=== PATIENT | female | born 1995 | race Caucasian/White ===

== ENCOUNTER 2017-11-05 15:58 | Emergency (ER) | payer BC, MEDICAID ==
[2017-11-05 16:30] VITALS: BP 142/75
--- NOTE | 2017-11-05 17:03 | UC ---
Skin Complaint HPI - HPI Summary HPI Summary: Patient is a 22-year-old female with the onset of her rash about 4 days ago. Initially the rest wrist just on her chest . It has since spread to her neck and upper back. It is not pruritic or painful. - History of Current Complaint Chief Complaint: UCRash Time Seen by Provider: 11/05/17 16:42 Stated Complaint: SKIN COMPLAINT Hx Obtained From: Patient Hx Last Menstrual Period: 10/20/17 Onset/Duration: Gradual Onset, Lasting Days Timing: Constant Onset Severity: Mild Current Severity: Moderate Pain Intensity: 0 Pain Scale Used: 0-10 Numeric Location: Other - see hpi Character: Redness, Raised Aggravating Factor(s): Nothing Alleviating Factor(s): Nothing Associated Signs & Symptoms: Positive: Rash - Allergy/Home Medications Allergies/Adverse Reactions: Allergies Allergy/AdvReac Type Severity Reaction Status Date / Time amoxicillin [From Augmentin] AdvReac GI Upset Verified 11/05/17 16:31 clavulanic acid AdvReac GI Upset Verified 11/05/17 16:31 [From Augmentin] Home Medications: Home Medications Ascorbic Acid TAB* [Vitamin C TAB*] 500 mg PO DAILY 11/05/17 [History Confirmed 11/05/17] Carvedilol TAB* [Coreg TAB*] 5 mg PO DAILY 11/05/17 [History Confirmed 11/05/17] Echinacea 380 mg PO DAILY 11/05/17 [History Confirmed 11/05/17] Magnesium [Magnesium Elemental] 30 mg PO DAILY 11/05/17 [History Confirmed 11/05] Multivitamin with Minerals [One Daily Complete] 1 each PO DAILY 11/05/17 [ History Confirmed 11/05/17] Review of Systems Constitutional: Negative Skin: Rash Eyes: Negative ENT: Negative Respiratory: Negative Cardiovascular: Negative Gastrointestinal: Negative Genitourinary: Negative Motor: Negative Neurovascular: Negative Musculoskeletal: Negative Neurological: Negative Psychological: Negative Is Patient Immunocompromised?: No All Other Systems Reviewed And Are Negative: Yes PMH/Surg Hx/FS Hx/Imm Hx Previously Healthy: Yes Endocrine History: Diabetes Cardiovascular History: Other Other Cardiovascular History: tachycardic/benign heart murmur - Surgical History Surgical History: None - Family History Known Family History: Positive: Hypertension - Social History Alcohol Use: Rare Substance Use Type: None Smoking Status (MU): Never Smoked Tobacco - Immunization History Vaccination Up to Date: Yes Physical Exam Triage Information Reviewed: Yes Appearance: Well-Appearing, No Pain Distress, Well-Nourished Vital Signs: Initial Vital Signs Temp 97.6 F 11/05/17 16:18 Pulse 112 11/05/17 16:18 Resp 16 11/05/17 16:18 BP 142/75 11/05/17 16:18 Pulse Ox 100 11/05/17 16:18 Vital Signs Reviewed: Yes Eyes: Positive: Conjunctiva Clear ENT: Positive: Hearing grossly normal. Negative: Nasal congestion, Nasal drainage, Trismus, Muffled voice, Hoarse voice Neck: Positive: Supple, Nontender, No Lymphadenopathy Respiratory: Positive: Lungs clear, Normal breath sounds, No respiratory distress Cardiovascular: Positive: RRR, No Murmur Musculoskeletal: Positive: No Edema Neurological: Positive: Alert Psychological Exam: Normal Skin Exam: Other - minute papule slight reddish base no pustules or vesicles Course/Dx - Diagnoses Provider Diagnoses: rash of uncertain cause. ? folliculitis vs other Discharge - Sign-Out/Discharge Documenting (check all that apply): Patient Departure All imaging exams completed and their final reports reviewed: No Studies - Discharge Plan Condition: Stable Disposition: HOME Prescriptions: Triamcinolone 0.5% CREAM(NF) [Triamcinolone 0.5% CREAM*] 1 applic TOPICAL QID # 60 tube Patient Education Materials: Acute Rash (ED) Referrals: Olivia Lambert PA [Primary Care Provider] - 5 Days (if not better) - Billing Disposition and Condition Condition: STABLE Disposition: Home
== END 2017-11-05 17:03 | disposition home or self-care (01) ==
LOC: UCCORT 15:58
DX: R21 Rash and other nonspecific skin eruption (principal); E11.9 Type 2 diabetes mellitus without complications; Z88.0 Allergy status to penicillin; Z88.1 Allergy status to other antibiotic agents
CPT/HCPCS: 99212; G0463

== ENCOUNTER 2018-03-24 19:09 | Emergency (ER) | payer BC, MEDICAID ==
[2018-03-24 19:39] VITALS: BP 130/85
--- NOTE | 2018-03-24 20:15 | UC ---
Throat Pain/Nasal Asaf HPI - HPI Summary HPI Summary: Pt c/o ST, and dry cough. Pt also concerned about vaginal yeast infection. Pt has DM and uses a pump. Pt also reports that she is having frequent hypoglycemic episodes. - History of Current Complaint Chief Complaint: UCGeneralIllness Stated Complaint: SORE THROAT,COUGH Time Seen by Provider: 03/24/18 19:34 Hx Obtained From: Patient Hx Last Menstrual Period: 02/2018 ?: No Onset/Duration: Sudden Onset, Lasting Days, Still Present Severity: Moderate Pain Intensity: 6 Cough: Nonproductive Associated Signs & Symptoms: Positive: Dysphagia - Epiglottits Risk Factors Epiglottis Risk Factors: Negative - Allergies/Home Medications Allergies/Adverse Reactions: Allergies Allergy/AdvReac Type Severity Reaction Status Date / Time amoxicillin [From Augmentin] AdvReac GI Upset Verified 03/24/18 19:38 clavulanic acid AdvReac GI Upset Verified 03/24/18 19:38 [From Augmentin] ppd serum Allergy See Comment Uncoded 03/24/18 19:38 PMH/Surg Hx/FS Hx/Imm Hx Previously Healthy: Yes Endocrine History: Diabetes - Surgical History Surgical History: None - Family History Known Family History: Positive: Hypertension - Social History Occupation: Employed Full-time Lives: With Family Alcohol Use: Occasionally Substance Use Type: None Smoking Status (MU): Never Smoked Tobacco Have You Smoked in the Last Year: No - Immunization History Vaccination Up to Date: Yes Review of Systems All Other Systems Reviewed And Are Negative: Yes Constitutional: Positive: Fatigue Skin: Positive: Negative Eyes: Positive: Negative ENT: Positive: Sore Throat Respiratory: Positive: Cough Cardiovascular: Positive: Negative Gastrointestinal: Positive: Negative Genitourinary: Positive: Vaginal/Penile Discharge Motor: Positive: Negative Neurovascular: Positive: Negative Musculoskeletal: Positive: Negative Neurological: Positive: Negative Psychological: Positive: Negative Is Patient Immunocompromised?: No Physical Exam Triage Information Reviewed: Yes Appearance: Well-Appearing Vital Signs: Initial Vital Signs Temp 98.3 F 03/24/18 19:29 Pulse 124 03/24/18 19:29 Resp 16 03/24/18 19:29 BP 130/85 03/24/18 19:29 Pulse Ox 99 03/24/18 19:29 Vital Signs Reviewed: Yes Eye Exam: Normal ENT: Positive: Pharyngeal erythema Dental Exam: Normal Neck exam: Normal Respiratory Exam: Normal Cardiovascular Exam: Normal Musculoskeletal Exam: Normal Neurological Exam: Normal Psychological Exam: Normal Skin Exam: Normal Throat Pain/Nasal Course/Dx - Course Course Of Treatment: I discussed with the pt and pt'smother my concern for her discussion of hypoglycemic episode. I recommened that they go directly to the closest ER. Pt verbalized understanding and agreed to plan of care. - Differential Dx/Diagnosis Differential Diagnosis/HQI/PQRI: Pharyngitis, Tonsillitis Provider Diagnosis: Sore throat (viral), Vaginal discharge Discharge - Sign-Out/Discharge Documenting (check all that apply): Patient Departure All imaging exams completed and their final reports reviewed: No Studies - Discharge Plan Condition: Stable Disposition: HOME Prescriptions: Fluconazole 150 MG TAB* [Diflucan 150 MG TAB*] 150 mg PO ONCE #2 tablet Patient Education Materials: Pharyngitis (ED), Vaginitis (ED) Referrals: Olivia Lambert PA [Primary Care Provider] - If Needed Additional Instructions: Please follow up with your PCP and your water supply technician as soon as possible. - Billing Disposition and Condition Condition: STABLE Disposition: Home - Attestation Statements Provider Attestation: I was available for consult. This patient was seen by the LETTY. The patient was not presented to, seen by, or examined by me. EK
== END 2018-03-24 20:24 | disposition home or self-care (01) ==
LOC: UCCORT 19:09
DX: J02.9 Acute pharyngitis, unspecified (principal); N89.8 Other specified noninflammatory disorders of vagina; E11.9 Type 2 diabetes mellitus without complications; Z96.41 Presence of insulin pump (external) (internal); Z88.0 Allergy status to penicillin; Z88.8 Allergy status to other drugs, medicaments and biological substances
CPT/HCPCS: 87651; 99212; G0463

== ENCOUNTER 2019-01-31 13:10 | Emergency (ER) | payer BC, MEDICAID ==
--- OUTSIDE RECORDS SUMMARY | 2019-01-31 13:43 | XMS REPORT | Continuity of Care Document ---
:1995 External Reference #:[id number] Author Name MARCELINA Mcmahan (transmitted by agent of provider Crystal Guadalupe) Address [address] [place] [address] Care Team Providers Name Role Phone Olivia Lambert RPA - Medical Care Team Information Laboratory Mechanic Helper Anil Jordan MD - Endocrinology, Care Team Information Laboratory Mechanic Helper [phone] Diabetes & Metabolism Problems Active Problems Provider Date Type 1 diabetes mellitus uncontrolled MARCELINA Mcmahan Onset: 05/18/2018 Hyperlipidemia MARCELINA Mcmahan Onset: 05/18/2018 Celiac disease MARCELINA Mcmahan Onset: 05/18/2018 Sprain of ankle MARCELINA Mcmahan Onset: 05/18/2018 Note: right side Essential hypertension MARCELINA Mcmahan Onset: 05/18/2018 Social History Type Date Description Comments Sex Unknown ETOH Use Occasionally consumes alcohol Tobacco Use Start: Unknown Patient has never smoked Recreational Drug Use Denies Drug Use Smoking Status Reviewed: 08/31/18 Patient has never smoked Exercise Type/Frequency Does not exercise Allergies, Adverse Reactions, Alerts Active Allergies Reaction Severity Comments Date Augmentin upset stomach,nausea 04/28/2018 Inactive Allergies NKDA 01/01/2013 Medications Active Medications SIG Qnty Indications Ordering Date Provider Atorvastatin Calcium 1 by mouth every 90tabs Brando 01/17/2019 40mg day MD Shahriar Tablets Diltiazem HCL ER Beads 1 cap by mouth Irais Bermeo 01/12/2019 every night PA 180mg Caps ER 24HR Multi Vitamin Daily 2 by mouth every 30tabs Brando 08/31/2018 day MD Shahriar Tablets Vitamin C 1 by mouth every 90caps Brando 08/31/2018 500mg Capsules day MD Shahriar Clobetasol Propionate apply to affected 30gm L30.9 Brando 08/31/2018 area every day MD Shahriar 0.05% Cream prn Enskyce 1 tab by mouth 84tabs Brando 06/02/2018 0.15-30mg-mcg every day MD Shahriar Tablets Novolog Infusion Via basal of 1.1 unit Anil Jordan, Pump per hour. Ibuprofen 3 tabs by mouth Unknown 200mg Tablets every 8 hours take with food Acetaminophen 2 tablets by Unknown 325mg mouth every 6 Tablets hours as needed for pain/fever Penicillin V Potassium Unknown 500mg Tablets Promethazine HCL Unknown 25mg Tablets Immunizations CPT Code Status Date Vaccine Reaction Lot # 42435 Given 11/19/2010 Influenza Virus Vaccine, Quadrivalent, Split, Preservative Free 80387 Given 02/10/2009 Influenza Virus Vaccine, Quadrivalent, Split, Preservative Free 82544 Given 02/10/2009 Influenza Virus Vaccine, Quadrivalent, H1N1 Split, Preservative Free 55476 Given 04/23/2008 Gardasil (HPV) 92367 Given 11/07/2007 Gardasil (HPV) 27536 Given 11/24/2006 Tdap - Tetanus/Diptheria/Acellular Pertussis 39788 Given 11/24/2006 Influenza Virus Vaccine, Quadrivalent, Split, Preservative Free 85867 Given 01/12/2002 IPV/Poliomyelitis Immunization 65179 Given 09/20/2000 Varicella (Chicken Pox) Immunization 56998 Given 09/20/2000 Measles Mumps And Rubella MMR 54943 Given 09/20/2000 DTaP Vaccine Younger Than 7 75264 Given 06/06/1998 Hep B Pediatric/Adolescent 13603 Given 05/01/1997 Hib PRP-T Conjugate 4 Dose Schedule 07401 Given 05/01/1997 DTaP Vaccine Younger Than 7 92744 Given 05/01/1997 Measles Mumps And Rubella MMR 01952 Given 1996 Hib PRP-T Conjugate 4 Dose Schedule 75668 Given 1996 IPV/Poliomyelitis Immunization 65547 Given 1996 DTaP Vaccine Younger Than 7 92550 Given 1996 IPV/Poliomyelitis Immunization 87642 Given 1996 DTaP Vaccine Younger Than 7 61577 Given 1996 Hib PRP-T Conjugate 4 Dose Schedule 00864 Given 1996 Hep B Pediatric/Adolescent 17632 Given 1996 IPV/Poliomyelitis Immunization 19924 Given 1996 DTaP Vaccine Younger Than 7 92687 Given 1996 Hib PRP-T Conjugate 4 Dose Schedule 59130 Given 1996 Hep B Pediatric/Adolescent Vital Signs Date Vital Result Comment 01/17/2019 3:00pm Weight 194.00 lb BP Systolic Sitting 112 mmHg BP Diastolic Sitting 70 mmHg 08/31/2018 12:54pm Height 66 inches 5'6" Weight 190.31 lb Heart Rate 92 /min BP Systolic Sitting 122 mmHg BP Diastolic Sitting 94 mmHg O2 % BldC Oximetry 98 % BMI (Body Mass Index) 30.7 kg/m2 Last Menstrual Period [id number] Results Test Acquired Date Facility Test Result H/L Range Note Laboratory test 08/31/2018 [facility] Cytology SEE RESULT 1 , [address] [place] [address] [phone] GC/Chlamydia 08/31/2018 [facility] Chlamydia Negative Negative Amplified Rna [address] [place] [address] [phone] Neisseria gonorrhoeae (GC) Rna Negative Negative 1 [id number] 2 SEE RESULT BELOW Name: NINA VARGAS : [address]: Olivia HEWITT Acct: [id number] Unit: [id number] AGE: 23 Location: [facility] Re08/31/18 SEX: F Status: REG REF SPEC: [id number] JANNET: 08/31/18-[address]: Olivia HEWITT REQ: [id number] RECD: 08/31/18 STATUS: SOUT _ ORDERED: TP IMAGE ANALYS, HPV/Thin Prep COMMENTS: [id number] Negative for Intraepithelial lesion or Malignancy Date Time Test Result Flag (u) Normal Range 08/31/18 1345 HPV RNA Negative Negative The high-risk HPV types detected by the assay include: 16, 18, 31, 33, 35, 39, 45, 51, 52, 56, 58, 59, 66, and 68. A. Ectocervical/Endocervical Specimen Adequacy: Satisfactory of evaluation Transformation zone component not identified Patient Information: HPV: High risk HPV RNA testing regardless of pap results. Actual Specimen Date: 08/31/18 Last Menstrual Date: 08/05/18 Spec Date if unknown: none ?: N Post Menopausal?: N Hysterectomy?: N Previous Abnormal Pap Smears?:N Signed by and Reported on: HERVE Trivedi(ASCP) [id number] This Pap test was evaluated with the assistance of the ThinPrep Test Imaging System. Due to cytologic findings at the dolly pusher microscope, comprehensive manual rescreening by a Inhalation Therapy Aides Teacher may be required. The Pap Smear is a screening test designed to aid in the detection of premalignant and malignant conditions of the uterine cervix. It is not a diagnostic procedure and should not be used as the sole means of detecting cervical cancer. Both false- positive and false- negative reports do occur. Depending on your risk status, a Pap smear should be obtained and evaluated every 1-3 years. END OF REPORT DEPARTMENT OF PATHOLOGY, [address] [place] [address] Alex Joseph M.D. Director [facility] # [id number] Procedures Date Code Description Status 10/03/2018 [id number] Diabetic Retinal Eye Exam Completed Medical Devices Description No Information Available Encounters Type Date Location Provider Dx Diagnosis Office Visit 08/31/2018 [facility] Olivia Lambert, H61.22 Impacted cerumen, 1:00p PA left ear E10.9 Type 1 diabetes mellitus without complications I10 Essential (primary) hypertension L30.9 Dermatitis, unspecified N77.1 Vaginitis, vulvitis and vulvovaginitis in dis classd elswhr E78.2 Mixed hyperlipidemia E03.9 Hypothyroidism, unspecified Z01.411 Encntr for coverer exam (general) (routine) w abnormal findings Assessments Date Code Description Provider 01/17/2019 E10.9 Type 1 diabetes mellitus without MARCELINA Mcmahan complications 01/17/2019 J02.0 Streptococcal pharyngitis MARCELINA Mcmahan 01/17/2019 E78.2 Mixed hyperlipidemia MARCELINA Mcmahan 08/31/2018 H61.22 Impacted cerumen, left ear MARCELINA Mcmahan 08/31/2018 E10.9 Type 1 diabetes mellitus without Olivia Muldrow, PA complications 08/31/2018 I10 Essential (primary) hypertension Olivia Lambert, PA 08/31/2018 L30.9 Dermatitis, unspecified Olivia Muldrow, PA 08/31/2018 N77.1 Vaginitis, vulvitis and vulvovaginitis in MARCELINA Mcmahan diseases classifie 08/31/2018 E78.2 Mixed hyperlipidemia Olivia Lambert, PA 08/31/2018 E03.9 Hypothyroidism, unspecified Olivia Muldrow, PA 08/31/2018 Z01.411 Encntr for coverer exam (general) (routine) w MARCELINA Mcmahan abnormal findings Plan of Treatment Future Appointment(s):09/03/2019 1:00 pm - MARCELINA Mcmahan at [facility]01/17/2019 - Olivia Lambert, PAE10.9 Type 1 diabetes mellitus without gqgjkjjsrmteqE10.0 Streptococcal xskilcuxgzcZ94.2 Mixed hyperlipidemiaComments: Current medication(s): Atorvastatin 20mg daily Increase to 40mg dailyFollow up:6 monthsAllNew Medication:Atorvastatin Calcium 40 mg - 1 by mouth every day Functional Status Description No Information Available Mental Status Description No Information Available Referrals Description No Information Available
--- OUTSIDE RECORDS SUMMARY | 2019-01-31 13:43 | XMS REPORT | Continuity of Care Document ---
:1995 External Reference #:[id number] Author Name Marcelo Briseno M.D. 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 Recreational Drug Use Never Used Drugs Allergies, Adverse Reactions, Alerts Active Allergies Reaction Severity Comments Date Gluten 01/17/2019 Augmentin 01/17/2019 Amoxicillin 01/17/2019 Medications Active Medications SIG Qnty Indications Ordering Provider Date Magnesium 1 by mouth every Unknown 300mg Capsules day Clobetasol Propionate use sparingly Unknown twice a day x 1 0.05% Ointment week Atorvastatin Calcium 1 by mouth every Unknown 20mg day Tablets Novolog sliding-insulin Unknown 100Unit/ML pump Solution Multivitamins 1 a day Unknown Capsules Penicillin V Potassium one tab three time Unknown daily 7 days 500mg Tablets Promethazine HCL 1 tab by mouth Unknown 12.5mg twice daily Tablets Immunizations Description No Information Available Vital Signs Date Vital Result Comment 01/17/2019 8:20am Weight 193.00 lb Height 66 inches 5'6" BMI (Body Mass Index) 31.1 kg/m2 BP Systolic 100 mmHg BP Diastolic 65 mmHg Heart Rate 101 /min O2 % BldC Oximetry 98 % Body Temperature 97.2 F Pain Level 0 Results Description No Information Available Procedures Description No Information Available Medical Devices Description No Information Available Encounters Description No Information Available Assessments Description No Information Available Plan of Treatment No Information Available Functional Status Description No Information Available Mental Status Description No Information Available Referrals Description No Information Available
--- OUTSIDE RECORDS SUMMARY | 2019-01-31 13:43 | XMS REPORT | Continuity of Care Document ---
:1995 External Reference #:[id number] Author Name Fabienne Ochoa PA (transmitted by agent of provider Nixon Matute) Address [address], [address] [place] [address] Care Team Providers Name Role Phone Olivia Lambert RPAC - Medical Care Team Information Immunologist [phone] Problems Active Problems Provider Date Type 1 diabetes mellitus Olivia Lambert RPAC Onset: 08/21/2014 Note: 01/2009, poor control Celiac disease Olivia Lambert [facility] Onset: 08/21/2014 Sudeep thyroiditis Olivia Lambert [facility] Onset: 01/18/2016 Vitamin D deficiency Olivia Lambert [facility] Onset: 01/18/2016 H/O: [facility]: 01/18/2016 Note: labile Psoriasis [facility] Onset: 01/20/2016 Note: scalp [facility] Onset: 09/15/2016 Mantoux: positive [facility] Onset: 11/05/2016 Note: Negative Quantiferon, negative CXR 2017 Sprain of ankle Evelia Lemons PA Onset: 05/04/2018 Social History Type Date Description Comments Sex Unknown Tobacco Use Start: Unknown Never Smoked Cigarettes ETOH Use Occasionally consumes alcohol Tobacco Use Start: Unknown Patient has never smoked Recreational Drug Use Denies Drug Use Smoking Status Reviewed: 05/30/18 Patient has never smoked Allergies, Adverse Reactions, Alerts Active Allergies Reaction Severity Comments Date Gluten 09/23/2015 Augmentin Nausea and Vomiting 10/24/2015 Clavulanic Acid Nausea/Vomiting 07/01/2017 Amoxicillin Nausea/Vomiting 07/01/2017 Inactive Allergies NKDA 01/15/2015 Medications Active Medications SIG Qnty Indications Ordering Date Provider Diltiazem HCL ER 1 by mouth every 90caps R00.0 Nixon Matute 01/12/2019 Coated Beads evening M., MYaraDYara, FACC 180mg Caps ER 24HR Magnesium 2 tabs by mouth Jorge Clark, 11/29/2016 250mg Tablets every day M.D. Clobetasol Propionate thin layer to 45gm Lorraine Martínez, 10/29/2016 psoriasis plaque MD 0.05% Cream twice a day as needed Atorvastatin Calcium 1 by mouth every 90tabs E78.5 Jorge Clark, 2016 day M.D. 20mg Tablets Novolog per [facility] Unknown Pump Glucagon Emergency as directed Unknown 1mg Kit Precision Xtra Blood Unknown Glucose Test Strips Strips Onetouch Verio as directed Unknown Strips Penicillin V 1 tab by mouth Unknown Potassium three times a day 500mg Tablets Promethazine HCL take 1 tablet by Unknown 25mg mouth every 12 Tablets hours as needed for nausea (maximum daily dose =2) Medications Administered in Office Medication SIG Qnty Indications Ordering Provider Date Olivia Hernandez RPAC 10/27/2016 Injection Immunizations CPT Code Status Date Vaccine Reaction Lot # [id number] Given 05/02/2017 Hepatitis B Vaccine Adult none [id number] 73601 Given 01/20/2017 Hepatitis B Vaccine Adult [id number] 02872 Given 11/04/2016 Varicella (Chicken Pox) Vaccine [id number] 04810 Given 11/04/2016 Influenza Virus Vaccine Quadrivalent [id number] [address] Given 10/29/2016 Hepatitis B Vaccine Adult [id number] 94486 Given 10/29/2016 Tdap injection [id number] 67595 Given 11/19/2010 flu vaccination [id number] Given 02/10/2009 flu vaccination 96687 Given 02/10/2009 H1N1 Immuniation Adminstration 99139 Given 04/23/2008 Gardasil 08606 Given 11/07/2007 Gardasil 75356 Given Unknown Influenza Virus Split Children 6-35 Mo Of Age Intramuscular Use Vital Signs Date Vital Result Comment 01/12/2019 3:17pm BP Systolic Sitting Right Arm 124 mmHg BP Diastolic Sitting Right Arm 68 mmHg Heart Rate 112 /min Respiratory Rate 18 /min Height 67 inches 5'7" Weight 196.00 lb BMI (Body Mass Index) 30.7 kg/m2 BSA (Body Surface Area) 2.00 m2 [place] body weight in kilograms 61 kg O2 % BldC Oximetry 98 % Ejection Fraction 60% 06/09/2018 9:45am BP Systolic Sitting Left Arm 110 mmHg BP Diastolic Sitting Left Arm 82 mmHg Heart Rate 102 /min Respiratory Rate 18 /min Height 67 inches 5'7" Weight 198.00 lb BMI (Body Mass Index) 31.0 kg/m2 BSA (Body Surface Area) 2.01 m2 [place] body weight in kilograms 61 kg O2 % BldC Oximetry 97 % Ora Results Test Acquired Date Facility Test Result H/L Range Note Comprehensive 01/12/2019 [facility] Glucose 238 mg/dL High 74-106 1 Metabolic Panel [address] [place] [address] [phone] BUN 22 mg/dL High 7-18 Creatinine 0.8 mg/dL Normal 0.6-1.3 Glom Filtration Rate, Estimate >60 mL/min >60 If >60 mL/min >60 2 BUN/Creat 27.5 ratio Sodium 134 mmol/L Low 136-145 Potassium 3.8 mmol/L Normal 3.5-5.1 Chloride 98 mmol/L Normal 98-107 Carbon Dioxide 26 mmol/L Normal 21-32 Anion Gap 10 mEq/L Normal 8-16 Calcium 9.3 mg/dL Normal 8.5-10.1 Total Protein 7.3 g/dL 6.4-8.2 Albumin 3.1 g/dL Low 3.4-5.0 Globulin 4.2 g/dL Normal 1.9-4.3 Alb/Glob 0.7 ratio Bilirubin,Total 0.2 mg/dL Normal 0.2-1.0 Sgot/Ast 21 U/L Normal 15-37 SGPT/Alt 29 U/L Normal 12-78 Alkaline Phosphatase 158 U/L High 45-117 Reflex add FT3? Y Reflex add FT4? Y Magnesium 01/12/2019 [facility] Magnesium 2.0 mg/dL Normal 1.8-2.4 [address] [place] [address] [phone] Reflex add FT3? Y Reflex add FT4? Y TSH Reflex 01/12/2019 [facility] Thyroid Stim 3.30 uIU/mL Normal 0.30-4.20 FT4 And/Or [address] Hormone FT3 [place] [address] [phone] Reflex add FT3? Y Reflex add FT4? Y 1 ROXANNA.O 2 Note: Persistent reduction for 3 months or more in an eGFR <60 mL/min/1.73 m2 defines CKD. Patients with eGFR values >/=60 mL/min/1.73 m2 may also have CKD if evidence of persistent proteinuria is present. The original MDRD equation for estimated GFR is not valid for patients less than 18 years of age. Additional information may be found at www.[facility].org. Procedures Date Code Description Status 01/12/2019 14924 EKG-Tracing And Report Completed Medical Devices Description No Information Available Encounters Type Date Location Provider Dx Diagnosis Office Visit 01/12/2019 Cardiology Office Fabienne Ochoa R00.0 Tachycardia, 3:00p MARCELINA Grider unspecified R60.0 Localized edema Assessments Date Code Description Provider 01/12/2019 R00.0 Tachycardia, unspecified Fabienne Ochoa PA 01/12/2019 R60.0 Localized edema Fabienne Ochoa PA 01/09/2019 E10.10 Type 1 diabetes mellitus with Tamara Moise M.D. ketoacidosis without coma 01/09/2019 R63.8 Other symptoms and signs concerning food Tamara oMise M.D. and fluid intake 01/09/2019 E87.8 Other disorders of electrolyte and fluid Tamara Moise M.D. balance, not elsewhere classified 01/09/2019 J02.9 Acute pharyngitis, unspecified Tamara Moise M.D. 01/08/2019 E10.10 Type 1 diabetes mellitus with Tamara Moise M.D. ketoacidosis without coma 01/08/2019 R63.8 Other symptoms and signs concerning food Tamara Moise M.D. and fluid intake 01/08/2019 E87.8 Other disorders of electrolyte and fluid Tamara Moise M.D. balance, not elsewhere classified 01/08/2019 J02.9 Acute pharyngitis, unspecified Tamara Moise M.D. 01/07/2019 E10.10 Type 1 diabetes mellitus with Shruthi Barnes M.D. ketoacidosis without coma 01/07/2019 R63.8 Other symptoms and signs concerning food Shruthi Barnes M.D. and fluid intake 01/07/2019 E87.8 Other disorders of electrolyte and fluid Shruthi Barnes M.D. balance, not elsewhere classified 01/07/2019 J02.9 Acute pharyngitis, unspecified Shruthi Barnes M.D. 01/06/2019 E10.10 Type 1 diabetes mellitus with Hay Bray M.D. ketoacidosis without coma 01/06/2019 R11.0 Nausea Hay Bray M.D. 01/06/2019 R39.198 Other difficulties with micturition Hay Bray M.D. 01/06/2019 R63.8 Other symptoms and signs concerning food Hay Bray M.D. and fluid intake 12/18/2018 R00.0 Tachycardia, unspecified Fabienne Ochoa, PA 12/18/2018 R60.0 Localized edema Fabienne Ochoa, PA 12/18/2018 E10.649 Type 1 diabetes mellitus with Fabienne Ochoa, PA hypoglycemia without coma 11/13/2018 E10.10 Type 1 diabetes mellitus with Venita Chapman MD ketoacidosis without coma 11/13/2018 E10.649 Type 1 diabetes mellitus with Venita Chapman MD hypoglycemia without coma 11/13/2018 N17.9 Acute kidney failure, unspecified Venita Chapman MD 11/13/2018 J02.0 Streptococcal pharyngitis Venita Chapman MD 11/12/2018 E10.10 Type 1 diabetes mellitus with Hay Bray M.D. ketoacidosis without coma 11/12/2018 E10.649 Type 1 diabetes mellitus with Hay Bray M.D. hypoglycemia without coma 11/12/2018 E83.51 Hypocalcemia Hay Bray M.D. 11/12/2018 E87.6 Hypokalemia Hay Bray M.D. Plan of Treatment Future Appointment(s):03/16/2019 2:40 pm - Fabienne Ochoa, PA at [id number]/12/2019 - Fabienne Ochoa, PAR00.0 Tachycardia, unspecifiedNew Medication:Diltiazem HCL ER Coated Beads 180 mg - 1 by mouth every eveningComments:Given hypoglycemic unawareness, will try switching from bisoprolol to diltiazem. She will take 1/2 tablet of bisoprolol for 3 days then start the CCB. Call with symptom update next week. Advised to follow up with endocrinology YOVANY.R60.0 Localized edemaComments:Obtain updated labs.AllFollow up:2-3 months Functional Status Functional Condition Comment Date Status Independent with all ADL's Active Mental Status Description No Information Available Referrals Description No Information Available
[2019-01-31 13:56] VITALS: BP 121/82
--- NOTE | 2019-01-31 14:25 | UC ---
Throat Pain/Nasal Asaf HPI - HPI Summary HPI Summary: 24-year-old female with a sore throat that she states she has had since November of last year. She has been hospitalized several times for strep pharyngitis. She is an insulin-dependent diabetic and at times very labile. She came here today just to get the strep test. She denies any fever or chills. Blood sugar today was 145. Urine was negative for ketones. She sees a specialist and is scheduled for tonsillectomy in March. - History of Current Complaint Chief Complaint: UCGeneralIllness Stated Complaint: SORE THROAT Time Seen by Provider: 01/31/19 13:54 Hx Obtained From: Patient Hx Last Menstrual Period: 01/06/19 ?: No Onset/Duration: Gradual Onset, Lasting Weeks Severity: Mild Pain Intensity: 4 Cough: None Associated Signs & Symptoms: Positive: Negative - Allergies/Home Medications Allergies/Adverse Reactions: Allergies Allergy/AdvReac Type Severity Reaction Status Date / Time Penicillins AdvReac Diarrhea Verified 01/31/19 13:49 ppd serum Allergy See Comment Uncoded 03/24/18 19:38 Home Medications: Home Medications Atorvastatin* [Lipitor*] 40 mg PO DAILY 01/31/19 [History Confirmed 01/31/19] Diltiazem CD CAP* [Cardizem CD CAP*] 180 mg PO DAILY 01/31/19 [History Confirmed 01/31/19] Insulin ASPART (NF) [Novolog (NF)] unit SC SEE INSTRUCTIONS 01/31/19 [History] Magnesium Oxide [Magnesium] 250 mg PO DAILY 01/31/19 [History Confirmed 01/31/19 ] PMH/Surg Hx/FS Hx/Imm Hx Previously Healthy: Yes Endocrine History: Diabetes Cardiovascular History: Other - Tachycardia Respiratory History: Asthma - Surgical History Surgical History: None - Family History Known Family History: Positive: Hypertension - Social History Alcohol Use: Occasionally Substance Use Type: None Smoking Status (MU): Never Smoked Tobacco Have You Smoked in the Last Year: No - Immunization History Vaccination Up to Date: Yes Review of Systems All Other Systems Reviewed And Are Negative: Yes ENT: Positive: Sore Throat Is Patient Immunocompromised?: No Physical Exam Triage Information Reviewed: Yes Appearance: Well-Appearing, No Pain Distress, Well-Nourished Vital Signs: Initial Vital Signs Temp 98.5 F 01/31/19 13:43 Pulse 124 01/31/19 13:43 Resp 16 01/31/19 13:43 BP 121/82 01/31/19 13:43 Pulse Ox 99 01/31/19 13:43 Vital Signs Reviewed: Yes Eyes: Positive: Conjunctiva Clear ENT: Positive: Hearing grossly normal, Pharynx normal, TMs normal, Uvula midline Neck: Positive: Supple, Nontender, No Lymphadenopathy Respiratory: Positive: Lungs clear, Normal breath sounds, No respiratory distress, No accessory muscle use Cardiovascular: Positive: No Murmur, Pulses Normal, Brisk Capillary Refill, Tachycardia Abdomen Description: Positive: Nontender, No Organomegaly, Soft. Negative: CVA Tenderness (R), CVA Tenderness (L), Distended, Guarding, Hepatomegaly, McBurney' s Point Tenderness, Splenomegaly Bowel Sounds: Positive: Present Musculoskeletal Exam: Normal Neurological Exam: Normal Psychological Exam: Normal Skin Exam: Normal Throat Pain/Nasal Course/Dx - Course Course Of Treatment: Rapid strep test was negative. I advised the patient if she has worsening symptoms coming into the weekend she is to go to the emergency room for further treatment. She continues to monitor her blood sugar as well as her ketones. She is agreeable to this plan of action. - Differential Dx/Diagnosis Provider Diagnosis: Pharyngitis Discharge ED - Sign-Out/Discharge Documenting (check all that apply): Patient Departure All imaging exams completed and their final reports reviewed: No Studies - Discharge Plan Condition: Good Disposition: HOME Patient Education Materials: Pharyngitis (ED) Referrals: Olivia Lambert PA [Primary Care Provider] - Additional Instructions: Increase fluids, warm saltwater gargles, throat lozenges. Definite follow-up with your primary care provider if no improvement or go to the emergency room coming into the iday weekend if you have any worsening symptoms. - Billing Disposition and Condition Condition: GOOD Disposition: Home
== END 2019-01-31 14:35 | disposition home or self-care (01) ==
LOC: UCCORT 13:10
DX: J02.9 Acute pharyngitis, unspecified (principal); E11.9 Type 2 diabetes mellitus without complications; J45.909 Unspecified asthma, uncomplicated; Z79.4 Long term (current) use of insulin; Z88.0 Allergy status to penicillin; Z88.7 Allergy status to serum and vaccine
CPT/HCPCS: 87070; 87651; 99211; G0463